=== PATIENT | female | born 1990 | race Caucasian/White ===

== ENCOUNTER 2018-12-23 15:30 | Outpatient (RCR) | payer BC ==
[~2018-12-23 15:30] MED LIST: NORCO 325 MG-51 TAB PO; VOLTAREN 75 DR75 MG PO
== END 2018-12-25 13:07 | disposition home or self-care (01) ==
LOC: WSC 15:30
DX: M25.561 Pain in right knee (principal)

== ENCOUNTER 2020-01-05 16:13 | Outpatient (RCR) | payer BC | END 2020-01-05 17:18 | disposition home or self-care (01) | LOC: MKS.ESL.PT 16:13 | DX: M54.41 Lumbago with sciatica, right side (principal) ==

== ENCOUNTER 2020-06-24 04:07 | Outpatient (CLI) | payer BC ==
[~2020-06-24] VITALS: Ht 167.6 cm; Wt 98.6 kg
--- NOTE | 2020-06-24 03:40 | NUR ---
G1L0. 37-0. Ambulatory to LDR 6 with spouse. Clean gown on. EFM and TOCO explained and applied. Pt states she has been marie since 1999 last night. Reports contractions every 2-3 mins that last about a min long. Pt denies leaking of fluids or vaginal bleeding. Reports good movement. Plan of care explained to pt and spouse who verbalize their understanding. VS and assessment completed. 0452: SVE unchanged. 0454: called and update on pts status given. Discharge orders received. 0455: Pt off monitors and to change clothes. 0505: Discharge instructions explained to pt. Pt denies questions. Pt ambulatory off unit and home with spouse.
[2020-06-24 04:00] VITALS: BP 117/67; PULSE 106; TEMP 98
[2020-06-24 04:30] VITALS: BP 115/79; PULSE 100
[2020-06-24] MEDS ORDERED: ZYRTEC 10MG10 MG PO (04:46)
[2020-06-24 04:55] VITALS: BP 120/78; PULSE 96
== END 2020-06-24 05:05 | disposition home or self-care (01) ==
LOC: LDRO 04:07 → LDR 04:37 → LDRO 05:05
DX: O62.9 Abnormality of forces of labor, unspecified (principal); Z3A.37 37 weeks gestation of pregnancy
CPT/HCPCS: OP

== ENCOUNTER 2020-06-27 10:31 | Outpatient (CLI) | payer BC ==
[~2020-06-27] VITALS: Ht 167.6 cm; Wt 98.6 kg
[~2020-06-27 10:31] MED LIST changes: +ZYRTEC 10MG10 MG PO
--- NOTE | 2020-06-27 10:35 | NUR ---
Patient ambulatory onto unit with at side for labor check. Patient reports increased discharge and cramping. Patient reports good movement. Denies vaginal bleeding or regular contractions. Plan of care discussed. Patient changes into gown. EFMs on. VS taken. SVE /-3 per this RN. AmniTrace negative. Assessment completed by Sharda ROSAS. Will notify for further orders.
[2020-06-27 11:00] VITALS: BP 134/82; PULSE 114; TEMP 98.1
[2020-06-27 11:30] VITALS: BP 121/81; PULSE 98
--- NOTE | 2020-06-27 11:40 | NUR ---
SVE unchanged, no fluid noted with exam. EFMs off. Discharge instructions and return precautions reviewed. Patient verbalizes understanding and denies questions. Patient ambulatory off of unit with at side.
== END 2020-06-27 11:45 | disposition home or self-care (01) ==
LOC: LDRO 10:31
DX: O42.92 Full-term premature rupture of membranes, unspecified as to length of time between rupture and onset of labor (principal); Z3A.37 37 weeks gestation of pregnancy

== ENCOUNTER 2020-07-12 00:55 | Inpatient (IN) | payer BC ==
[2020-07-12] VITALS (45 sets, daily range): BP systolic 11–135; BP diastolic 50–93; PULSE 77–127; TEMP 97.3–98.1
[~2020-07-12] VITALS: Ht 167.6 cm; Wt 100.5 kg
[2020-07-12] MEDS ORDERED: DUO-KAPS1 CAP PO (01:13)
--- NOTE | 2020-07-12 01:30 | NUR ---
G1 at 39.4 weeks gestation to LDR6 with c/o SROM at 0010. Patient reports a gush of clear fluid. She states she is having occasional cramping, but nothing regular. She reports good movement today, but states that baby has not been as active since SROM. She denies vaginal bleeding. GBS+. Patient changed into gown, wedged left in bed. EFMs explained and applied. FHR 140 bpm. CTX q5-6 minutes. VSS. SVE 3/70/-2 with positive amniotrace and small amount of clear fluid noted with exam. Plan of care reviewed with patient and spouse. Dr. Mckeon notified.
[2020-07-12 01:53] LABS: BASO % 0.3 % (0.0-2.0); EOS # 0.1 (0.0-0.7); EOS % 0.6 % (0-4.0); GRAN # 9.3 (1.4-6.5); GRAN % 74.5 % (42.2-75.2); HEMOGLOBIN 12.4 g/dl (12.5-16.0); LYMPH % 16.1 % (20.0-51.0); MEAN CELL VOLUME 94 fl (80.0-100.0); MEAN CORPUSCULAR HEMOGLOBIN 31 pg (27.0-31.0); MEAN CORPUSCULAR HGB CONC 33 g/dl (33.0-37.0); MEAN PLATELET VOLUME 11.5 fl (7.4-10.4); MONO # 0.9 (0.1-0.6); MONO % 7.6 % (1.7-9.3); PLATELET COUNT 243 K/mm3 (130-400); RED BLOOD COUNT 4.04 M/mm3 (4.10-5.30); REDCELL DISTRIBUTION WIDTH-CV 14.2 % (11.5-14.5)
--- NOTE | 2020-07-12 03:30 | NUR ---
Pitocin started at 2mu per orders and protocol.
--- NOTE | 2020-07-12 06:15 | NUR ---
Patient more uncomfortable with contractions. SVE /-2. Requesting epidural. IVF bolus started. T[employer]BE [employer]TER notified.
--- NOTE | 2020-07-12 06:45 | NUR ---
0643- Pt assisted to sitting on side of bed for epidural placment. Junito, CRUZITO at bedside. O2 sat monitor on for maternal HR evaluation. FHR and UCs not tracing well due to maternal position. 0656- Test dose, see anesthesia record. 0701- Pt assisted to semi-fowlers with WL. EFM and TOCO adjusted.
--- NOTE | 2020-07-12 07:22 | NUR ---
Pt refuses COVID test at this time.
--- NOTE | 2020-07-12 10:15 | NUR ---
1008- Pt feeling lots of pressure with UCs. Pitocin off. Room prepped for delivery.
--- NOTE | 2020-07-12 10:50 | NUR ---
1016- Dr Roles at bedside. Arango removed without difficulty by this RN. Pt coached on pushing, begins pushing with UCs. 1023- Dr Roles out to nurses station. This RN remains at bedside pushing with Pt. 1033- Dr Roles and Elijah, Nursery RN at bedside. Pt and room prepped for delivery. Pt continues to push with UCs. 1050- of viable male . To mother's abd, tended to by nursery RN. Cord clamped and cut. 1053- Spontaneous delivery of placenta. Pitocin started at 333ml/hr. Fundus massaged to firm by . 2nd degree laceration repaired. Pericare completed. Ice pack to perineum, clean chux under Pt. Pt repositioned to semi-fowlers, skin-2-skin.
[2020-07-13 00:15] VITALS: BP 127/79; PULSE 101
[2020-07-13 03:10] VITALS: BP 118/80; PULSE 87; TEMP 97.2
[2020-07-13 07:00] VITALS: BP 115/80; PULSE 92; TEMP 98.2
[2020-07-13] MEDS ORDERED: IBU600 MG PO (09:11)
[2020-07-13 16:29] VITALS: BP 109/70; PULSE 98; TEMP 98.2
[2020-07-13 20:00] VITALS: BP 119/73; PULSE 104; TEMP 98
[2020-07-14 07:45] VITALS: BP 111/72; PULSE 93; TEMP 97.7
== END 2020-07-14 13:35 | disposition home or self-care (01) | DRG 807 ==
LOC: LDRO 00:55 → LDR 01:33 → OB 13:30
PROVIDERS: ADMIT Obstetrics & Gynecology
PROC: 10E0XZZ Delivery of Products of Conception, External Approach (ICD-10-PCS; principal; 2020-07-12)
PROC: 0KQM0ZZ Repair Perineum Muscle, Open Approach (ICD-10-PCS; 2020-07-12)
DX: O99.824 Streptococcus B carrier state complicating childbirth (principal); Z37.0 Single live birth; O70.1 Second degree perineal laceration during delivery; Z3A.39 39 weeks gestation of pregnancy
CPT/HCPCS: J2540; J2590; J7120

== ENCOUNTER → 2020-07-19 | Outpatient (CLI) | payer BC ==
[~2020-07-19] MED LIST changes: +DUO-KAPS1 CAP PO; +IBU600 MG PO
--- NOTE | 2020-07-19 15:30 | NUR ---
Pt, Valentine Pratt, presents for outpatient consult with one week old baby boy, Tayo Pratt, for a evaluation. She is accompanied by her spouse, Benita Pratt. Tayo was born on [birth year] and weighed 8#0.4oz (3640 gms). He struggled with interest in and latching for the first 1.5 days of life, then he had moderate effort. Day of discharge pt felt Tayo was latching better in general but would not latch prior to leaving so a nipple shield was placed and he seemed to hold the latch and nurse more actively with occassional swallows. The family was also using SNS to encourage Tayo's effort. His discharge wt was 7#8.5oz. [facility] and weighed 7#7.6oz and again this morning with a weight of 7#8.2oz. At this appt. Tayo weighs 7#7.3oz. Family reports a void and stool between the appts. Pt states Tayo struggles to stay latched on the left breast. LC advises/assists with latch on Left. Tayo initiates latch but seems to let the areola slip out of his mouth as the feeding progresses and needs relatched a few time. He has alvin of sucks that are of medium quality, but swallows are not frequent for his age. He latches a little better on the right breast. After Tayo has a gain of 14gms from the left and 20gms from the right for a total weight gain of 34gms. LC evaluates infant's mouth, he extends tongue across the gum line but has a weak grasp. The anterior palate has an elevated arch so he tends to suck with the finger in his mouth shallow. When the finger is advanced toward the hard and soft palate junction he resists. Tayo if bottle fed 35ml formula. Three-step feeding plan suggested. Breastfeed upto 10 min per breast, supplement 30-45ml EBM or formula by bottle (amount depends on effort). Pump x15 minutes after . Consider pump and bottle in the noc as pt is not getting much rest, having a little "" emotions. Information about herbal supplements provided. Consider trying smaller breast cerda on pump. POC: 3-step plan as described. F/U: End of this week or early next week pending effort and milk supply. Pt to contact this LC for appt. Questions invited and answered.
== END ==
LOC: LAC 14:13
DX: Z39.1 Encounter for care and examination of lactating mother (principal); Z71.89 Other specified counseling

== ENCOUNTER → 2020-07-23 | Outpatient (CLI) | payer BC ==
--- NOTE | 2020-07-23 13:51 | NUR ---
Pt, Valentine Pratt, presents for outpatient consult with 11 day old baby boy, Tayo Pratt, and her , Benita. They were seen on 07/19/20 by this LC for low weight gain, low milk supply, and latch troubles. Tayo was born on [birth year] and weighed 8#0.4oz (3640 gms). On 07/19/20 Tayo weighed 7#7.3oz (3382 gms). They have follow the feeding plan from our previous consult, , supplementing ~30ml by bottle, and pumping. Today Tayo weighs 7#11.4oz, for a gain of about 4oz over 4 days. Pt reports 8 feedings, qs voids and stools. Pumping ~20 ml per session, so using a little formula to meet his supplement goals. After today Tayo had a gain of 28 gms. Pt still struggles with getting his to latch well some times. Guillermo was fed ~30ml formula by bottle after . POC: Try to increase supplement to 45ml per feeding. Consider changing feed times at night to pump and bottle rather than breast and bottle since Tayo seems to not perform as well at [facility]. F/U: July 13 @ 1300. Questions invited and answered.
== END ==
LOC: LAC 12:51
DX: Z39.1 Encounter for care and examination of lactating mother (principal); Z71.89 Other specified counseling

== ENCOUNTER → 2020-07-29 | Outpatient (CLI) | payer BC ==
--- NOTE | 2020-07-29 13:43 | NUR ---
Pt, Valentine Pratt, presents for follow up consult with 18 day old baby boy, Tayo Pratt, and her spouse Benita Pratt. Tayo has been slow to gain weight, has had latching difficulties, and pt has had a low milk supply. Tayo was born on [birth year] and weighed 8#0.4oz (3640 gms). At our previous appt on 07/23/20 Tayo weighed 7#11.4oz. The family has continued with the 3-step feeding plan: , supplementing an average of 35ml, and then pumping where pt is collecting an ave of 55ml. Today Tayo weighs 8#4.1oz (3744 gms), for a gain of 8.7oz over 6 days. Tayo is latching much better now, and after the right breast has a gain of 1.2oz (32 gms), from the right a gain of 0.8oz (22 gms) for a total intake of 2.0oz (60 gms). Intake at the previous consult was 28 gms. The family remarks that since Tayo's weight has increased he is nursing better, burping better and generally feel they are making good progress with . POC: Because the family will be on vacation over the next two weeks and follow up will not be an option, LC suggests continue with current feed/supplement/pump plan. The following week reduce supplement by half, as well as reduce number of pumpings in half. F/U: Tayo will be seen by Dr. Salcido on August 17, to update this LC to review progress. Questions invited and answered.
== END ==
LOC: LAC 13:00
DX: Z39.1 Encounter for care and examination of lactating mother (principal); Z71.89 Other specified counseling